=== PATIENT | female | born 1940 | race Caucasian/White ===

== ENCOUNTER 2016-10-15 22:51 | Emergency (ER) | payer MEDICARE, OTHER | END 2016-10-16 02:43 | disposition home or self-care (01) | LOC: ER 22:51 | DX: I49.3 Ventricular premature depolarization (principal); R00.2 Palpitations; I11.9 Hypertensive heart disease without heart failure; K21.9 Gastro-esophageal reflux disease without esophagitis; E78.00 Pure hypercholesterolemia, unspecified; F41.1 Generalized anxiety disorder; Z95.5 Presence of coronary angioplasty implant and graft; Z79.899 Other long term (current) drug therapy; Z79.82 Long term (current) use of aspirin; Z79.01 Long term (current) use of anticoagulants | CPT/HCPCS: 36415; 71020; 80053; 82553; 83735; 84439; 84443; 84484; 85025; 85610; 85730; 93005 ==